=== PATIENT | female | born 1950 | race Caucasian/White ===

== ENCOUNTER 2024-07-14 07:15 | Day surgery (SDC) | payer MEDICARE ==
[2024-07-14] MEDS: Polymyxin B/Trimethoprim 10 ML Bottle EYELF SCH (07:18)
[2024-07-14] MEDS: Phenylephrine 2.5% Ophth Soln 2 ML Bot EYELF SCH (07:20)
[2024-07-14] MEDS: Brimonidine 0.2% Ophth Soln 5 ML Bottle EYELF SCH (07:23)
[2024-07-14] MEDS: Pilocarpine 4% Ophth Soln 15 ML Bot EYELF SCH (07:29)
[2024-07-14] MEDS: Lidocaine 1% PF 2 ML SDV INJECT SCH (07:29)
[2024-07-14] MEDS: Tetracaine HCl/PF 0.5% 4 ML Bottle EYEBOTH SCH (07:29)
[2024-07-14] MEDS: Cefuroxime 10 MG/ML SYRINGE EYELF SCH (07:29)
[2024-07-14] MEDS: Tropicamide 1% Ophth Soln 3 ML Bottle EYELF SCH (07:33)
== END 2024-07-14 09:17 ==
LOC: JD.SDS 07:15
PROVIDERS: ATTEND Ophthalmology
DX: E10.36 Type 1 diabetes mellitus with diabetic cataract (principal); H25.813 Combined forms of age-related cataract, bilateral; H21.81 Floppy iris syndrome; H21.42 Pupillary membranes, left eye; I10 Essential (primary) hypertension; E78.2 Mixed hyperlipidemia; Z79.84 Long term (current) use of oral hypoglycemic drugs; Z79.899 Other long term (current) drug therapy
CPT/HCPCS: 66982; A9270; J0697; J3490

== ENCOUNTER → 2024-08-11 | Day surgery (SDC) | payer MEDICARE ==
[2024-08-11] MEDS: Lidocaine 1% PF 2 ML SDV INJECT SCH (06:58)
[2024-08-11] MEDS: Cefuroxime 10 MG/ML SYRINGE EYERT SCH (06:58)
[2024-08-11] MEDS: Pilocarpine 4% Ophth Soln 15 ML Bot EYERT SCH (06:58)
[2024-08-11] MEDS: Brimonidine 0.2% Ophth Soln 5 ML Bottle EYERT SCH (06:58)
[2024-08-11] MEDS: Phenylephrine 2.5% Ophth Soln 2 ML Bot EYERT SCH (06:58)
[2024-08-11] MEDS: Tetracaine HCl/PF 0.5% 4 ML Bottle EYEBOTH SCH (06:58)
[2024-08-11] MEDS: Polymyxin B/Trimethoprim 10 ML Bottle EYERT SCH (06:59)
[2024-08-11] MEDS: Tropicamide 1% Ophth Soln 3 ML Bottle EYERT SCH (07:31)
== END ==
LOC: JD.SDS 07:15
PROVIDERS: ATTEND Ophthalmology
DX: E10.36 Type 1 diabetes mellitus with diabetic cataract (principal); H25.811 Combined forms of age-related cataract, right eye; H21.42 Pupillary membranes, left eye; H21.81 Floppy iris syndrome; I10 Essential (primary) hypertension; E78.2 Mixed hyperlipidemia; H52.31 Anisometropia; H40.031 Anatomical narrow angle, right eye; E10.3293 Type 1 diabetes mellitus with mild nonproliferative diabetic retinopathy without macular edema, bilateral; Z79.84 Long term (current) use of oral hypoglycemic drugs; Z79.899 Other long term (current) drug therapy
CPT/HCPCS: A9270-GY; J0697; J3490